=== PATIENT | female | born 1980 | race Caucasian/White ===

== ENCOUNTER 2016-08-13 22:29 | Emergency (ER) | payer OTHER ==
[~2016-08-13 22:29] MED LIST: ASPI-COR81 M1 PO; ELA25 PO; LAC PO; LEVOFLOXACIN500 M1 PO; LEVOTHYROXIN0.025 M2 PO; MIRALAX17 GM/Dose PO; PRILOSEC20 MG PO; XAN5 PO
[2016-08-14 01:22] VITALS: BP 121/68
== END 2016-08-14 01:22 | disposition home or self-care (01) ==
LOC: ED 22:29
DX: L29.9 Pruritus, unspecified (principal); E03.9 Hypothyroidism, unspecified
CPT/HCPCS: Q0163

== ENCOUNTER 2016-09-07 17:45 | Emergency (ER) | payer OTHER ==
[2016-09-07 21:13] VITALS: BP 136/86
== END 2016-09-07 21:13 | disposition home or self-care (01) ==
LOC: ED 17:45
DX: G89.29 Other chronic pain (principal); M79.671 Pain in right foot; R03.0 Elevated blood-pressure reading, without diagnosis of hypertension; E07.9 Disorder of thyroid, unspecified; M79.89 Other specified soft tissue disorders; M54.9 Dorsalgia, unspecified; F41.9 Anxiety disorder, unspecified; Z86.59 Personal history of other mental and behavioral disorders
CPT/HCPCS: J1885

== ENCOUNTER 2017-03-15 04:29 | Emergency (ER) | payer MEDICAID ==
[~2017-03-15] VITALS: Ht 152.4 cm; Wt 99.8 kg
[2017-03-15 04:37] VITALS: Ht 152.4 cm; Wt 99.8 kg
[2017-03-15 08:00] LABS: BASOPHIL % 0.1 % (0-2); PLATELET COUNT 343 x10^3mcL (130-400); RED CELL DISTRIBUTION WIDTH 13.4 % (11.5-14.5)
[2017-03-15 08:28] LABS: ALBUMIN 3.7 g/dL (3.4-5.0); ALKALINE PHOSPHATASE 76 U/L (46-116); ALT/SGPT 54 U/L (14-59); AST/SGOT 36 U/L (15-37); BILIRUBIN TOTAL 0.42 mg/dL (0.20-1.00); CALCIUM 8.7 mg/dL (8.5-10.1); CARBON DIOXIDE 23.1 mmol/L (21-32); CHLORIDE SERUM 105 mmol/L (98-107); CREATININE SERUM 0.8 mg/dL (0.6-1.0); GFR1 > 60 mL/min; GLUCOSE SERUM 141 mg/dL (74-106); LIPASE 161 IU/L (73-393); POTASSIUM SERUM 3.7 mmol/L (3.5-5.1); SODIUM SERUM 141 mmol/L (136-145); TOTAL PROTEIN, SERUM 7.5 g/dL (6.4-8.2)
[2017-03-15 08:41] VITALS: BP 119/67
== END 2017-03-15 08:41 | disposition home or self-care (01) ==
LOC: ED 04:29
PROVIDERS: Emergency Medicine
DX: R10.11 Right upper quadrant pain (principal); R11.2 Nausea with vomiting, unspecified; R19.7 Diarrhea, unspecified; F17.200 Nicotine dependence, unspecified, uncomplicated; E07.9 Disorder of thyroid, unspecified; G89.29 Other chronic pain; M54.9 Dorsalgia, unspecified; G43.909 Migraine, unspecified, not intractable, without status migrainosus; M54.30 Sciatica, unspecified side; Z71.6 Tobacco abuse counseling
CPT/HCPCS: 99406; J2405; J3010; J7030; Q0092

== ENCOUNTER 2017-09-09 21:12 | Emergency (ER) | payer SELFPAY ==
[~2017-09-09] VITALS: Ht 170.2 cm; Wt 104.9 kg
[2017-09-09 21:16] VITALS: Ht 170.2 cm; Wt 104.9 kg
[2017-09-10 00:50] VITALS: BP 142/85
== END 2017-09-10 00:50 | disposition home or self-care (01) ==
LOC: ED 21:12
DX: N76.0 Acute vaginitis (principal); E03.9 Hypothyroidism, unspecified; E66.9 Obesity, unspecified
CPT/HCPCS: 82962

== ENCOUNTER 2018-05-02 18:51 | Emergency (ER) | payer SELFPAY ==
[~2018-05-02] VITALS: Ht 162.6 cm; Wt 102.5 kg
[2018-05-02 23:12] VITALS: BP 124/82
== END 2018-05-02 23:12 | disposition home or self-care (01) ==
LOC: ED 18:51
DX: G43.909 Migraine, unspecified, not intractable, without status migrainosus (principal); F41.9 Anxiety disorder, unspecified; G89.29 Other chronic pain; E03.9 Hypothyroidism, unspecified
CPT/HCPCS: J1885

== ENCOUNTER 2018-11-27 21:23 | Emergency (ER) | payer MEDICAID ==
[~2018-11-27] VITALS: Ht 152.4 cm; Wt 101.6 kg
[2018-11-27 21:41] VITALS: Ht 152.4 cm; Wt 101.6 kg
[2018-11-27 22:48] LABS: BASOPHIL % 0.6 % (0-2); PLATELET COUNT 294 x10^3mcL (130-400); RED CELL DISTRIBUTION WIDTH 13.5 % (11.5-14.5)
[2018-11-27 23:37] LABS: CALCIUM 8.5 mg/dL (8.5-10.1); CARBON DIOXIDE 28.4 mmol/L (21-32); CHLORIDE SERUM 104 mmol/L (98-107); CREATININE SERUM 0.9 mg/dL (0.6-1.0); GFR1 > 60 mL/min; GLUCOSE SERUM 121 mg/dL (74-106); POTASSIUM SERUM 4.3 mmol/L (3.5-5.1); SODIUM SERUM 140 mmol/L (136-145)
[2018-11-27 23:41] LABS: ALBUMIN 3.8 g/dL (3.4-5.0); ALKALINE PHOSPHATASE 111 U/L (46-116); ALT/SGPT 80 U/L (14-59); AST/SGOT 82 U/L (15-37); BILIRUBIN TOTAL 0.7 mg/dL (0.20-1.00); TOTAL PROTEIN, SERUM 7.7 g/dL (6.4-8.2)
[2018-11-28 00:05] LABS: FREE T4 0.93 ng/dL (0.76-1.46); FREE THYROXINE INDEX 2.7 ug/dL (1.4-4.5); T3 TOTAL 1.04 ng/mL; T4(THYROXINE) 9.3 ug/dL (4.7-13.3)
[2018-11-28 00:30] VITALS: BP 141/85
== END 2018-11-28 00:51 | disposition home or self-care (01) ==
LOC: ED 21:23
PROVIDERS: Emergency Medicine
DX: R53.1 Weakness (principal); R42 Dizziness and giddiness; R11.2 Nausea with vomiting, unspecified; F41.9 Anxiety disorder, unspecified; G43.909 Migraine, unspecified, not intractable, without status migrainosus
CPT/HCPCS: 36415; 84439